=== PATIENT | female | born 1960 | race Caucasian/White ===

== ENCOUNTER → 2017-02-22 | Outpatient (CLI) | payer OTHER, MEDICARE ==
[~2017-02-22] MED LIST: GADOBUTROL 10 ML VIAL IVP ONE
== END ==
LOC: FIMAGING 19:38
PROVIDERS: ATTEND Physician Assistant Surgical
DX: Z86.011 Personal history of benign neoplasm of the brain (principal)
CPT/HCPCS: 70553; A9585